=== PATIENT | female | born 1955 | race Caucasian/White ===

== ENCOUNTER 2025-01-31 17:35 | Emergency (ER) | payer SELFPAY ==
[2025-01-31] VITALS (15 sets, daily range): BP systolic 90–116; BP diastolic 55–72; BMI 24.9; BMI 23.5
--- NOTE | 2025-01-31 17:52 | ED.GENMED ---
History of Present Illness
General
Chief Complaint: Fainting/Passed Out
Source: patient and witness
Exam Limitations: none
Time Seen by Provider: 01/31/25 17:51
Nursing documentation reviewed up to this point in time: agreed with
History of Present Illness
History of Present Illness:
69 yo female with hx hypothyroidism here for syncopal episode while eating lunch at a restaurant with friend who is at bedside. Friend states she was sitting, talking to pt when pt complained of feeling dizzy, broke out in a sweat, was 'white'
colored, eyes rolled up and she wouldn't respond. Friend held her head while someone got ice and cold towel and placed on her neck and head and after about a minute pt came around, said she felt nauseous and vomited once. Pt recalls feeling dizzy
prior to episode, denies any pain, particularly chest or abdominal pain. No recent illness. Had one alcoholic drink of Gin and seltzer at lunch.
Pt now feels 'a little short of breath' that started in the ambulance on way here. Received 500 mg IVF and Zofran en route.
Past History
Past History
ED Past Medical History: Hypothyroidism
Social History
Tobacco: Non-smoker
Alcohol: Occasional
Living: with roommate
Review of Systems
Review of Systems
Allergies reviewed?: Yes
All Other Systems: ROS reviewed and negative except as documented in HPI and ROS
Constitutional: Denies fever or fatigue
EENT: Denies sore throat
Respiratory: Reports other (feels 'a little' short of breath); Denies trouble breathing
Cardiac: Denies chest pain
ABD/GI: Denies abdominal pain
: Denies dysuria, frequency or difficulty voiding
Musculoskeletal: Reports no symptoms
Skin: Reports no symptoms
Neurological: Reports no symptoms
Phy Exam
Physical Exam
Physical Exam:
GENERAL: No acute distress. A&Ox3.
CONSTITUTIONAL: Afebrile.
EYES: clear, conjunctivae normal
ENMT: moist mucus membranes, Pharynx nl
RESPIRATORY: Regular respirations, nonlabored, lungs clear.
CARDIOVASCULAR: Regular rate and rhythm, no murmurs, no rubs.
GI: Soft, nontender, normal BS
MUSCULOSKELETAL: Moves with ease. Well perfused.
SKIN: Warm, dry, pink
PSYCH: Normal mood and affect. Well kept, interactive and appropriate
NEUROLOGIC: Awake, alert and oriented. Speech clear. Cranial nerves II through XII intact. Strength equal throughout. No focal neurological deficits
Course
Orders/Labs/Results
Orders:
Orders
01/31/25 17:39
Electrocardiogram (*1) Urgent
Reason for Study: Chest Pain
EKG- Treatment ONCE
01/31/25 17:53
Complete Blood Count/With Diff Urgent
Comprehensive Metabolic Panel Urgent
TSH Urgent
Comment: ADD ON
01/31/25 18:03
0.9% Sodium Chloride 1000 ml [Nss] 1,000 ml IV BOLUS
CXR2 [CR Chest - 2 Views ] Urgent
Comment:
Reason For Exam: short of breath, syncope
01/31/25 18:04
Add On- LAB Urgent
Comments:: TSH blood in lab
Tests Added?: TSH
01/31/25 18:09
D-Dimer Urgent
01/31/25 19:42
CT Head W/o Iv Contrast Urgent
Comment:
Reason For Exam: dizziness, syncopal episode
Abnormal Lab Results
01/31/25
17:53
Chloride 111 H mmol/L
(98-107)
Carbon Dioxide 19 L mmol/L
(22-30)
BUN 18 H mg/dl
(7-17)
Glucose 105 H mg/dl
(70-99)
TSH < 0.02 L uIU/ml
(0.47-4.68)
01/31/25 17:53
01/31/25 17:53
Vital Signs
Initial and Last Documented VS:
Initial Vital Signs
Temp Pulse Resp BP Pulse Ox
97.8 F 84 16 101/56 95
01/31/25 17:42 01/31/25 17:42 01/31/25 17:42 01/31/25 17:42 01/31/25 17:42
Last Documented Vital Signs
Temp Pulse Resp BP Pulse Ox
97.8 F 84 18 116/64 98
01/31/25 17:42 01/31/25 22:15 01/31/25 22:00 01/31/25 22:00 01/31/25 22:15
MDM/Problems Addressed
Differential Diagnosis Includes:
dehydration, vasovagal episode, PE
CVA
MDM/Problems Addressed:
69 yo female with hx hypothyroidism here for syncopal episode while eating lunch at a restaurant with friend who is at bedside. Friend states she was sitting, talking to pt when pt complained of feeling dizzy, broke out in a sweat, was 'white'
colored, eyes rolled up and she wouldn't respond. Friend held her head while someone got ice and cold towel and placed on her neck and head and after about a minute pt came around, said she felt nauseous and vomited once. Pt recalls feeling dizzy
prior to episode, denies any pain, particularly chest or abdominal pain. No recent illness. Had one alcoholic drink of Gin and seltzer at lunch. No seizure activity reported
Pt now feels 'a little short of breath' that started in the ambulance on way here. Received 500 mg IVF and Zofran en route.
EKG NSR
CBC normal CMP with no clinically significant abnormality
TSH less than 0.02
D dimer WNL
CXR: IMPRESSION:
No acute disease of the chest.
Mild left lower lobe atelectasis versus scarring.
Small right lower lobe probable pleural calcification versus pulmonary nodule. Nonurgent chest CT examination recommended when the patient is able.
Copy of CXR report given to pt to f/u w PCP
Nothing worrisome in workup
After 1500 ml IVFs, pt still feeling dizzy.
Finger to nose intact. OOB and heel to toe walk steady, ambulates with steady gait but feels 'like I'm going to be unsteady.' Not room spinning dizziness.
Head CT pending
2199:
Vision radiology report read: No acute intracranial hemorrhage, no acute intracranial abnormality.
Patient is hungry and is tolerating eating
Pt OOB and ambulating well
Plan: Home, rest, drink plenty of fluids, f/u with [facility] on Sunday (2 days)
Return instructions reviewed with patient.
Patient is stable for discharge
*Pulse Oximetry
SaO2: 93
Oxygen Mode of Delivery: Room air
Patient hypoxic: no
*EKG
EKG Intrepretation Date: 01/31/25
Interpretation: normal
Heart Rate: 85
Rate: normal
Rhythm: sinus
[place]: normal axis
Interval: normal interval
QRS Pattern: normal QRS
Ischemia: no ischemia
*Critical Care Note
Total Time (30-74mins, 75-104mins- exclusive of procedures): Not Applicable
ED Attending Note
-
Portions of this chart may have been created with voice recognition software.� Occasional wrong word or��sound alike� substitutions may have occurred due to the inherent limitations of voice recognition software.
Discharge Plan
Departure
Patient Disposition: Home (Routine Discharge)
Date of Disposition: 01/31/25
Time of Disposition: 22:12
Patient with high blood pressure during this ER visit?: No
Condition: Good
Discharge Problem:
Syncope, Dizziness
Instructions: Syncope (Fainting) (DC), Dizziness, Nonvertigo, (DC)
Prescriptions:
No Action
Nature Thyroid 60 mg Tablet
75 mg PO DAILY
Referrals:
DEDE BEDOYA [Other] - Follow up in 2-3 days
Activity Restrictions/Additional Instructions:
As we discussed, your workup here today shows nothing worrisome. Your head CT is normal.
Your thyroid test shows a low TSH. Please discuss this with your doctor on Sunday.
Return here immediately for any further fainting spells, if your dizziness gets worse, you cannot walk with steady gait, weakness in arms or legs, or you feel worse in any way
Drink plenty of water/fluids.
Interventions
Interventions:
*Risk Screen - Suicide Last Done: 01/31/25 17:44
*General Assessment Last Done: 01/31/25 17:44
*Neglect/Abuse Screening Last Done: 01/31/25 17:44
*ED- Fall Risk Assessment Last Done: 01/31/25 17:44
*ED COVID-19 Vaccine History Last Done: 01/31/25 17:44
*Nursing Disposition Last Done: 01/31/25 22:34
ED- Cardiac Assessment Last Done: 01/31/25 17:58
ED- Neurological Assessment Last Done: 01/31/25 17:58
Discharge Date and Time
Discharge Date/Time: 01/31/25 22:38
Print Language: LATVIAN
[2025-01-31 18:02] LABS: Hematocrit 37.9 % (37.0-47.0); Hemoglobin 12.7 g/dL (12.0-16.0); Mean Corp Hgb Conc. 33.5 g/dL (33.0-37.0); Mean Corpuscular Volume 85.0 fL (81.0-99.0); Nucleated Red Blood Cells % 0 %; Platelet Count 256 10^3/uL (130-400); Red Cell Dist. Width 12.3 % (11.5-14.5)
[2025-01-31] MEDS: NSS 1000 IV (18:10)
[2025-01-31 18:31] LABS: ALT (SGPT) 20 U/L (0-35); AST (SGOT) 20 U/L (14-36); Albumin 3.8 g/dl (3.5-5.0); Alkaline Phosphatase 55 U/L (38-126); Blood Urea Nitrogen 18 mg/dl (7-17); Calcium 9.0 mg/dl (8.4-10.2); Carbon Dioxide 19 mmol/L (22-30); Chloride 111 mmol/L (98-107); Estimated Creatinine Clearance 49 ml/min; Glucose 105 mg/dl (70-99); Potassium 3.6 mmol/L (3.5-5.1); Sodium 139 mmol/L (135-145); Total Protein 6.3 g/dl (6.3-8.2); eGFR > 60.00
[2025-01-31 19:02] LABS: TSH < 0.02 uIU/ml (0.47-4.68)
[2025-01-31 19:16] LABS: D-Dimer < 0.27 ug/mlFEU (0.00-0.50)
== END 2025-01-31 22:38 | disposition home or self-care (01) ==
LOC: EMR 17:35
PROVIDERS: Emergency Medicine; Registered Nurse; EMERGENCY PHYSICIAN Emergency Medicine
DX: R55 Syncope and collapse (principal); R42 Dizziness and giddiness; E03.9 Hypothyroidism, unspecified
CPT/HCPCS: 99285; 96360; 70450; 71046; 80053; 84443; 85025; 85379; 93005